=== PATIENT | male | born 1965 | race African-American/Black ===

== ENCOUNTER 2017-03-25 03:32 | Emergency (ER) | payer OTHER ==
--- NOTE | ~2017-03-25 | EKG ---
PATIENT: ADOLFO REZA UNIT #: [id number] Ventricular Rate: 118 BPM Atrial Rate: 118 BPM P-R Interval: 156 ms QRS Duration: 84 ms Q-T Interval: 314 ms QTC Calculation(Bezet): 440 ms P [place]: 76 degrees Calculated R [place]: 72 degrees Calculated T [place]: 76 degrees Diagnosis Line: Sinus tachycardia Diagnosis Line: Otherwise normal ECG Diagnosis Line: When compared with ECG of 13-APR-2015 17:39, Diagnosis Line: No significant change was found Diagnosis Line: Confirmed by MARIBEL MEDRANO MD ([id number]) on Diagnosis Line: 03/26/2017 10:47:05 AM INTERPRETING VERITO COSTA
--- NOTE | ~2017-03-25 | CR2 ---
[facility] A Service of [facility] & [facility] RADIOLOGY TEXT RESULTS PATIENT: ADOLFO REZA LOCATION: [facility] : 63 UNIT #: [id number] AGE: [address]: Sandra Mora MD SEX: M ORDER DR: [id number] [facility] [address] [place], [place] [address] [id number] MR#: [id number] Acc #: [id number] NAME: ADOLFO REZA : 1965 SEX: M STUDY DATE/TIME: 03/25/2017 5:03 UNIT: [facility] ROOM: STUDY DESCRIPTION: CR Abdomen Acute Series Attending Physician: Sandra Mora M.D. Ordering Physician: Donavon Gonzalez M.D. Primary Care Physician: Primary Care Physician No MEDICAL IMAGING REPORT This report is preliminary unless electronic signature is present EXAM Acute abdominal series INDICATIONS Chest pain and hematemesis today PROCEDURE Frontal view chest, and supine upright views of the abdomen COMPARISON None FINDINGS Heart size normal. No dense consolidation. No free air. Nonobstructed pattern. IMPRESSION No acute findings Dictated by... Oliver Johnson M.D. THIS IS AN ELECTRONICALLY VERIFIED REPORT Oliver Johnson M.D. at 03/25/2017 9:54 PM EED/to TD: 03/25/2017 12:40 JOB #: [id number] MEDICAL IMAGING REPORT Page 1 of 1 COPY
[~2017-03-25 03:32] MED LIST: ALL DAY ALLERGY10 M2 PO; BACTROBAN22 GM EXT; FLEXERIL10 MG PO; FLOVENT DI50 MCG/DIS INH; LISINOPRIL20 MG PO; NORVASC10 MG PO; OMEPRAZOLE40 M1 PO; ZANAFLEX4 M1 PO; ZANTAC150 M1 PO
[2017-03-25 04:28] LABS: BASOPHIL% 0.6 % (0-2.5); HEMATOCRIT 42.1 % (38.0-50.0); HEMOGLOBIN 14.3 gm/dL (13.0-16.0); LYMPHOCYTE# 0.7 X10e3 (1.0-3.5); LYMPHOCYTE% 13.4 % (17.0-45.0); MEAN CELL VOLUME 103.2 FL (83-96); MEAN CORPUSCULAR HGB CONC 33.9 g/dL (30-36); MEAN PLATELET VOLUME 8.6 FL (6.5-11.5); MONOCYTE# 0.4 X10e3 (0-1.0); MONOCYTE% 8.5 % (3.0-12.0); NEUTROPHIL# 3.8 X10e3 (1.5-7.1); NEUTROPHIL% 77.5 % (40-75); PLATELET COUNT 172 X10e3 (140-420); RED BLOOD COUNT 4.08 X10e (3.90-5.60); WHITE BLOOD COUNT 4.9 X10e3 (4.0-10.5)
[2017-03-25 04:29] LABS: DIFF IND NO
[2017-03-25 04:40] LABS: PARTIAL THROMBOPLASTIN TIME 26.4 SECONDS (23.5-31.3); PROTHROMBIN TIME (PATIENT) 10.8 SECONDS (10.0-11.7)
[2017-03-25 04:48] LABS: POC - CKMB 13.4 ng/mL (0.0-7.9); POC - TROPONIN <0.05 ng/mL (<=0.05)
[2017-03-25 05:03] LABS: ALBUMIN SERUM 4.4 g/dL (3.5-5.0); ALKALINE PHOSPHATASE 72 U/L (32-92); ALT (SGPT) 184 U/L (10-40); AST (SGOT) 211 U/L (10-42); BILIRUBIN, DIRECT 0.2 mg/dL (0.0-0.2); BILIRUBIN,INDIRECT 0.7 mg/dL (0.0-0.9); BILIRUBIN,TOTAL 0.9 mg/dL (0.2-2.0); CALCIUM SERUM 8.4 mg/dL (8.4-10.2); CARBON DIOXIDE 26 mmol/L (22-31); CHLORIDE 103 mmol/L (100-111); CREATININE SERUM 0.4 mg/dL (0.6-1.4); GLOM FILT RATE Estimated 158.3 mL/min (>60); GLUCOSE FASTING 114 mg/dL (70-110); POTASSIUM 3.3 mmol/L (3.5-5.1); PROTEIN TOTAL SERUM 8.4 g/dL (6.0-8.3); SODIUM 136 mmol/L (135-145)
[2017-03-25 05:04] LABS: BLOOD UREA NITROGEN <5 mg/dL (9-23)
[2017-03-25 05:05] LABS: ALCOHOL BLOOD 300 mg/dL (0)
[2017-03-25 06:29] LABS: POC - CKMB 13.2 ng/mL (0.0-7.9); POC - TROPONIN <0.05 ng/mL (<=0.05)
[2017-03-25 06:33] LABS: AMPHETAMINE NEG (NEG); BARBITURATES NEG (NEG); BENZODIAZEPINES NEG (NEG); COCAINE POS (NEG); MARIJUANA POS (NEG); OPIATES NEG (NEG); TRICYCLIC ANTIDEPRESSANTS NEG (NEG); U METHADONE NEG (NEG)
== END 2017-03-25 07:33 | disposition home or self-care (01) ==
LOC: CED 03:32
PROVIDERS: Emergency Medicine
DX: K29.20 Alcoholic gastritis without bleeding (principal); F10.129 Alcohol abuse with intoxication, unspecified; F17.200 Nicotine dependence, unspecified, uncomplicated; Z88.6 Allergy status to analgesic agent; Y90.8 Blood alcohol level of 240 mg/100 ml or more
CPT/HCPCS: 36415; 74022; 80048; 80076; 80307; 82550; 82553; 83690; 84484; 85025; 85610; 85730; 93005; 96365; 99284; C9113; G0480; J2405; J3411; J3475